=== PATIENT | male | born 1945 ===

== ENCOUNTER 2024-09-12 10:05 | Outpatient (CLI) | payer MEDICARE, OTHER, SELFPAY | END 2024-09-12 10:06 | disposition home or self-care (01) | LOC: AMB 09-22 04:15 | PROVIDERS: Visit Provider Internal Medicine | DX: S09.90XA Unspecified injury of head, initial encounter (principal); R55 Syncope and collapse; W18.30XA Fall on same level, unspecified, initial encounter; Y93.F1 Activity, caregiving, bathing; Y92.121 Bathroom in nursing home as the place of occurrence of the external cause | CPT/HCPCS: A0425; A0427 ==

== ENCOUNTER 2024-10-16 09:32 | Outpatient (CLI) | payer MEDICARE, OTHER, SELFPAY | END 2024-10-16 09:33 | disposition home or self-care (01) | LOC: AMB 10-22 16:27 | PROVIDERS: Visit Provider Emergency Medicine Emergency Medical Services | DX: S09.90XA Unspecified injury of head, initial encounter (principal); W18.12XA Fall from or off toilet with subsequent striking against object, initial encounter; Y92.002 Bathroom of unspecified non-institutional (private) residence as the place of occurrence of the external cause | CPT/HCPCS: A0425; A0429 ==

== ENCOUNTER 2024-11-25 13:56 | Outpatient (CLI) | payer MEDICARE, OTHER, SELFPAY | END 2024-11-25 13:57 | disposition home or self-care (01) | LOC: AMB 11-26 12:56 | PROVIDERS: Visit Provider Student in an Organized Health Care Education/Training Program | DX: R55 Syncope and collapse (principal); S09.90XA Unspecified injury of head, initial encounter; W18.39XA Other fall on same level, initial encounter; Y92.009 Unspecified place in unspecified non-institutional (private) residence as the place of occurrence of the external cause | CPT/HCPCS: A0425; A0427 ==

== ENCOUNTER 2025-07-11 13:12 | Outpatient (CLI) | payer MEDICARE, OTHER, SELFPAY | END 2025-07-11 13:13 | disposition home or self-care (01) | LOC: AMB 07-14 16:46 | PROVIDERS: Visit Provider Family Medicine | DX: R42 Dizziness and giddiness (principal); R53.83 Other fatigue | CPT/HCPCS: A0425; A0427 ==